=== PATIENT | male | born 1985 | race African-American/Black ===

== ENCOUNTER 2019-03-03 23:09 | Emergency (ER) | payer SELFPAY ==
[2019-03-03] MEDS ORDERED: LIDOCAINE 1%/EPINEPHRINE INJ 20 ML VIAL INJ ONE (23:40)
[2019-03-04] MEDS ORDERED: HYDROCODONE/ACETAMINOPHEN 5-325 MG (6 TAB/ER DISP) PO PRN (01:46)
[2019-03-04] MEDS ORDERED: HYDROCODONE/ACETAMINOPHEN 5-325 MG TABLET PO ONE (01:46)
[2019-03-04] MEDS ORDERED: CEPHALEXIN 500 MG CAPSULE PO ONE (01:46)
--- NOTE | 2019-03-04 01:48 | ER Document Report ---
ED General - General Chief Complaint: Laceration Stated Complaint: HAND INJURY Time Seen by Provider: 03/03/19 23:36 Notes: Patient is a pleasant 33-year-old male who cut his right hand using a broom. The broom handles apparently was broken and stuck into his right hand. There is a laceration going across the palmar aspect of his right hand. No numbness or weakness into the fingers. No other complaints at this time. No other injuries. TRAVEL OUTSIDE OF THE [place] IN LAST 30 DAYS: No - Related Data Allergies/Adverse Reactions: No Known Allergies Allergy (Unverified 03/04/19 00:17) Past Medical History - Social History Smoking Status: Never Smoker Chew tobacco use (# tins/day): No Frequency of alcohol use: None Drug Abuse: None Family History: Reviewed & Not Pertinent Patient has suicidal ideation: No Patient has homicidal ideation: No Renal/ Medical History: Denies: Hx Peritoneal Dialysis Review of Systems - Review of Systems Notes: My Normal Review Basic REVIEW OF SYSTEMS: CONSTITUTIONAL : Denies fever, chills, or sweats. Denies recent illness. MUSCULOSKELETAL: Denies neck or back pain or joint pain or swelling. SKIN: Denies rash or skin lesions. HEMATOLOGIC : Denies easy bruising or bleeding. NEUROLOGICAL: Near syncope. Patient's says that this is normal for him whenever he sees blood. ALL OTHER SYSTEMS REVIEWED AND NEGATIVE. Physical Exam - Vital signs Vitals: Temp Pulse Resp BP Pulse Ox 99.0 F 85 16 115/63 94 03/03/19 23:30 03/03/19 23:30 03/03/19 23:30 03/03/19 23:30 03/03/19 23:30 - Notes Notes: General Appearance: Well nourished, alert, cooperative, no acute distress, mild obvious discomfort. Vitals: reviewed, See vital signs table. Head: no swelling or tenderness to the head Eyes: PERRL, EOMI, Conjuctiva clear Mouth: No decreasd moisture Lungs: No wheezing, No rales, No rhonci, No accessory muscle use, good air exchange bilaterally. Heart: Tachycardic rate, Regular rythm, No murmur Extremities: strength 5/5 in all extremities, good pulses in all extremities, patient has a long laceration that is diagonal across almost the entire palm of the right hand. Laceration goes into the subcutaneous fat but does not appear to extend beyond that. Patient is able to fully flex and extend his fingers without difficulty. He has good distal sensation in all fingers. Lacerations approximately 6 cm in length., no edema. Skin: warm, dry, appropriate color, no rash Neuro: speech clear, oriented x 3, normal affect, responds appropriately to questions. Cranial nerves II through XII are intact. Distal sensation intact. Patient moves all extremities without difficulty. Course - Re-evaluation Re-evalutation: 03/05/19 05:21 Patient had a laceration of the right hand. Patient's said that he did have much bleeding. She said this usually occurred she quickly applied pressure and he did not bleed a lot. Patient is diaphoretic, but tachycardic when he arrived however patient's said this is normal for him whenever he sees blood and he does not handle it well and typically will almost pass out. After the wound was fixed patient felt much improved. His color is normal. He is not tachycardic. He looks well. He has good flexion extension through all fingers. Is good distal sensation. I will place patient antibiotic because of the laceration to his hand. Visual examination of the laceration did not appear to go beyond the subcutaneous fat of the hand. Did not appear to reach arteries or the tendons of the hand. - Vital Signs Vital signs: Temp Pulse Resp BP Pulse Ox 98.1 F 85 16 111/62 100 03/04/19 02:27 03/03/19 23:30 03/04/19 02:01 03/04/19 02:01 03/04/19 02:01 Procedures - Laceration/Wound Repair Right Hand Wound length (cm): 6 Wound's Depth, Shape: Irregular Laceration pre-procedure: Chloraprep applied Anesthetic type: 1% Lidocaine w/epi Volume Anesthetic (mLs): 4 Wound explored: Clean Irrigated w/ Saline (mLs): 50 Wound Repaired With: Sutures Suture Size/Type: 4:0, Ethilon Number of Sutures: 13 Complications: No Discharge - Discharge Clinical Impression: Laceration Condition: Good Disposition: HOME, SELF-CARE Additional Instructions: Please gently clean the hands with soap and water every day. Please take antibiotics as prescribed. I gave you a small bottle of stronger pain medicine for the next 1 to 2 days. This medicine is called Howard. Please be aware that Howard does have Tylenol (acetaminophen) in it. Please make sure you do not take more than 4000 mg of acetaminophen a day. Do not drive or care for children after you have taken this medication they will make you sleepy and sometimes impair judgment. Please return to the ER in 7 days for suture removal. Please make sure that you slowly flex and extend the fingers of your hand multiple times a day. Return to ER immediately if there is any redness or swelling to the hand, signs of infection, or frequent bleeding. Please keep the wound cov ered when you are working or if your hand is around a dirty environment. Prescriptions: RX: Cephalexin Monohydrate [Keflex 500 mg Capsule] 500 mg PO BID 5 Days #10 capsule Forms: Return to Work
[2019-03-04 02:06] VITALS: BP 111/62
== END 2019-03-04 02:05 | disposition home or self-care (01) ==
LOC: ER 23:09
DX: S61.411A Laceration without foreign body of right hand, initial encounter (principal); W27.8XXA Contact with other nonpowered hand tool, initial encounter
CPT/HCPCS: 99282; J3490

== ENCOUNTER 2019-03-12 15:42 | Emergency (ER) | payer SELFPAY ==
--- NOTE | 2019-03-12 18:18 | ER Document Report ---
HPI - HPI Patient complains to provider of: Suture removal Time Seen by Provider: 03/12/19 18:06 Pain Level: 2 Context: Patient is a 33-year-old male presents to the emergency department for suture removal from his right hand. Patient states on 03/03/2019 he was at this facility for suture placement. States he was told to come back in 7 days for suture removal. Patient states been taking antibiotics as prescribed. Patient denies any redness, swelling, discharge from the site. Past Medical History - General Information source: Patient - Social History Smoking Status: Unknown if Ever Smoked Family History: Reviewed & Not Pertinent Renal/ Medical History: Denies: Hx Peritoneal Dialysis Vertical Provider Document - CONSTITUTIONAL Agree With Documented VS: Yes Notes: GENERAL: Alert, interacts well. No acute distress. HEAD: Normocephalic, atraumatic. EYES: Pupils equal, round, and reactive to light. Extraocular movements intact. ENT: Oral mucosa moist, tongue midline. NECK: Full range of motion. Supple. Trachea midline. LUNGS: Clear to auscultation bilaterally, no wheezes, rales, or rhonchi. No respiratory distress. HEART: Regular rate and rhythm. No murmur ABDOMEN: Soft, non-tender. Non-distended. Bowel sounds present in all 4 quadrants. EXTREMITIES: Moves all 4 extremities spontaneously. No edema, normal radial and dorsalis pedis pulses bilaterally. No cyanosis. BACK: no cervical, thoracic, lumbar midline tenderness. No saddle anesthesia, normal distal neurovascular exam. NEUROLOGICAL: Alert and oriented x3. Normal speech. cranial nerves II through XII grossly intact PSYCH: Normal affect, normal mood. SKIN: Warm, dry, normal turgor. Sutured laceration noted to the palmar aspect of the right hand. - INFECTION CONTROL TRAVEL OUTSIDE OF THE [place] IN LAST 30 DAYS: No Course - Re-evaluation Re-evalutation: 03/12/19 18:15 And examining patient's wound it does appear that parts of the wounds are well- healed although the distal aspect still does not appear to be healed very well. There are no signs of erythema, discharge. I had a lengthy discussion with patient and at bedside. It is my recommendation that the patient keep the sutures in for a couple more days. Recommendation for upper extremity suture removal is 8 to 14 days. I discussed this at length with patient at bedside. They are in agreements that they will return to the emergency department in the next couple of days for suture removal. This medical record was dictated with voice recognizing software. There may be grammatical, syntax errors that are unintended. Discharge - Discharge Clinical Impression: Visit for suture removal Condition: Stable Disposition: HOME, SELF-CARE Additional Instructions: You have been seen and treated in the emergency department for potential suture removal. It is my recommendation that you keep the sutures in for a few more days. Sutures in the hand can be left in place up to 14 days. Should you show any signs of redness, swelling, discharge from the site immediately return to the emergency room.
[2019-03-12 18:50] VITALS: BP 127/84
== END 2019-03-12 18:51 | disposition home or self-care (01) ==
LOC: ER 15:42
DX: S61.411D Laceration without foreign body of right hand, subsequent encounter (principal); X58.XXXD Exposure to other specified factors, subsequent encounter
CPT/HCPCS: 99281

== ENCOUNTER 2019-03-16 23:48 | Emergency (ER) | payer SELFPAY ==
[2019-03-16 23:59] VITALS: BP 122/73
--- NOTE | 2019-03-17 01:46 | ER Document Report ---
ED Medical Screen (RME) - General Chief Complaint: Suture Removal Stated Complaint: SUTURE REMOVAL Time Seen by Provider: 03/17/19 01:45 Mode of Arrival: Ambulatory Information source: Patient Notes: Patient here for suture removal to the right hand laceration. Patient has family members concerned about the appearance of the wound. Patient is only willing to have the physician who placed the sutures remove them. I have greeted and performed a rapid initial assessment of this patient. A comprehensive ED assessment and evaluation of the patient, analysis of test results and completion of the medical decision making process will be conducted by additional ED providers. TRAVEL OUTSIDE OF THE [place] IN LAST 30 DAYS: No - Related Data Allergies/Adverse Reactions: No Known Allergies Allergy (Verified 03/12/19 15:43) Past Medical History Renal/ Medical History: Denies: Hx Peritoneal Dialysis Physical Exam - Vital signs Vitals: Temp Pulse Resp BP Pulse Ox 98.4 F 83 16 122/73 97 03/16/19 23:58 03/16/19 23:58 03/16/19 23:58 03/16/19 23:58 03/16/19 23:58 - Skin Skin irregularity: Laceration - Sutured laceration to palmar surface of right hand Course - Vital Signs Vital signs: Temp Pulse Resp BP Pulse Ox 98.4 F 83 16 122/73 97 03/16/19 23:58 03/16/19 23:58 03/16/19 23:58 03/16/19 23:58 03/16/19 23:58
--- NOTE | 2019-03-17 02:36 | ER Document Report ---
ED General - General Chief Complaint: Suture Removal Stated Complaint: SUTURE REMOVAL Time Seen by Provider: 03/17/19 01:45 Mode of Arrival: Ambulatory Notes: Patient is a pleasant 33-year-old male who I placed sutures in 12 days ago after he had a extensive laceration to the right hand. Patient had return 7 days later and was told that is not not fully healed and therefore to come back in a few more days and as well patient is returned. On examination patient's hand is well-appearing. Him and his said that they have been keeping Neosporin on it at all times over since sutures were applied. Patient denies any redness or swelling. No recent fevers or infections. Denies any weakness or numbness into the hand or fingers. TRAVEL OUTSIDE OF THE [place] IN LAST 30 DAYS: No - Related Data Allergies/Adverse Reactions: No Known Allergies Allergy (Verified 03/12/19 15:43) Past Medical History - General Information source: Patient - Social History Smoking Status: Never Smoker Frequency of alcohol use: None Drug Abuse: None Family History: Reviewed & Not Pertinent Patient has suicidal ideation: No Patient has homicidal ideation: No Renal/ Medical History: Denies: Hx Peritoneal Dialysis Review of Systems - Review of Systems Notes: My Normal Review Basic REVIEW OF SYSTEMS: CONSTITUTIONAL : Denies fever, chills, or sweats. Denies recent illness. MUSCULOSKELETAL: Laceration to the right hand. SKIN: Denies rash or skin lesions. NEUROLOGIC: Denies sensory or motor loss. ALL OTHER SYSTEMS REVIEWED AND NEGATIVE. Physical Exam - Vital signs Vitals: Temp Pulse Resp BP Pulse Ox 98.4 F 83 16 122/73 97 03/16/19 23:58 03/16/19 23:58 03/16/19 23:58 03/16/19 23:58 03/16/19 23:58 - Notes Notes: General Appearance: Well nourished, alert, cooperative, no acute distress, no obvious discomfort. Vitals: reviewed, See vital signs table. Extremities: Abrasion on the palm of the right hand is not epithelializing because it is been covered with Neosporin continuously since the patient went home after having sutures placed. It itself is actually glistening from all the Neosporin. Redness. There is no signs of infection. The subcutaneous portions of the wound appeared to have healed. Patient is able to move all fingers of the right hand without any difficulty. Skin: warm, dry, appropriate color, no rash Neuro: speech clear, oriented x 3, normal affect, responds appropriately to questions. Course - Re-evaluation Re-evalutation: 03/17/19 06:39 I removed a few of his sutures. I did place some Steri-Strips over certain areas of the wound. I talked to the patient and his at length about how important it is to avoid any further petroleum products or Neosporin. Informed him to only do gentle soap and water. I will have him come back on Tuesday and I will reevaluate the hand and hopefully be able to remove the remainder of the sutures. Patient and agree with plan patient will be discharged home. Dictation of this chart was performed using voice recognition software; therefor e, there may be some unintended grammatical errors. - Vital Signs Vital signs: Temp Pulse Resp BP Pulse Ox 98.4 F 83 16 122/73 97 03/16/19 23:58 03/16/19 23:58 03/16/19 23:58 03/16/19 23:58 03/16/19 23:58 Discharge - Discharge Clinical Impression: Visit for suture removal, Visit for wound check Condition: Good Disposition: HOME, SELF-CARE Additional Instructions: Please stop using Neosporin. Do not apply any petroleum-based products to your hand. Continue use of petroleum-based products will continue to cause difficulty with wound healing. Please gently wash with soap and water every day. Please return to the ER on Tuesday night I will reevaluate the hand and likely remove the remainder of the stitches.
== END 2019-03-17 03:01 | disposition home or self-care (01) ==
LOC: ER 23:48
DX: S61.411D Laceration without foreign body of right hand, subsequent encounter (principal); X58.XXXD Exposure to other specified factors, subsequent encounter
CPT/HCPCS: 99281